=== PATIENT | male | born 1960 | race African-American/Black ===

== ENCOUNTER 2018-02-05 12:17 | Emergency (ER) | payer MEDICAID ==
[~2018-02-05] VITALS: Ht 177.8 cm; Wt 78.0 kg
[~2018-02-05 12:17] MED LIST: INDO25CA18 PO
[2018-02-05 12:49] VITALS: BP 200/128
== END 2018-02-05 15:00 | disposition left against medical advice (07) ==
LOC: ER 14:04
DX: M79.642 Pain in left hand (principal); M79.89 Other specified soft tissue disorders; Z53.21 Procedure and treatment not carried out due to patient leaving prior to being seen by health care provider

== ENCOUNTER 2018-04-11 08:59 | Emergency (ER) | payer MEDICAID ==
[~2018-04-11] VITALS: Ht 177.8 cm; Wt 77.0 kg
[2018-04-11] MEDS ORDERED: ASPIRIN 81MG TABLET PO ONE (09:30)
[2018-04-11] MEDS ORDERED: MECLIZINE 12.5MG TABLET PO ONE (09:30)
[2018-04-11 10:02] LABS: EOSINOPHILS % 2.4 % (0.0-5.0); HEMATOCRIT. 39.2 % (42.0-52.0); LYMPHOCYTES % 38.4 % (20.0-50.0); MEAN CORPUSCULAR HEMOGLOBIN 31.2 pg (28.0-32.0); MEAN CORPUSCULAR VOLUME 93.9 fL (80.0-94.0); MEAN PLATELET VOLUME 7.4 fl (7.4-10.4); MONOCYTES % 4.1 % (2.0-8.0); NEUTROPHILS % 54.1 % (40.0-76.0); PLATELET 327 x1000/uL (130-400); RED BLOOD CELL COUNT 4.17 mill/uL (4.7-6.1); RED CELL DISTRIBUTION WIDTH 14.3 % (11.6-14.6)
[2018-04-11 10:08] LABS: PROTHROMBIN TIME 9.9 sec (9.1-11.1)
[2018-04-11 10:12] LABS: CHLORIDE 106 mEq/L (98-107)
[2018-04-11 11:13] VITALS: BP 143/84
== END 2018-04-11 11:20 | disposition home or self-care (01) ==
LOC: ER 08:59
DX: H61.23 Impacted cerumen, bilateral (principal); R42 Dizziness and giddiness; R11.0 Nausea; J45.909 Unspecified asthma, uncomplicated; F12.10 Cannabis abuse, uncomplicated; Z98.890 Other specified postprocedural states; Z79.899 Other long term (current) drug therapy
CPT/HCPCS: 36415; 71045; 83880; 84484; 93005; 99284; 99406; J8597

== ENCOUNTER 2018-12-08 06:01 | Inpatient (IN) | payer MEDICAID ==
[~2018-12-08] VITALS: Ht 180.3 cm; Wt 74.4 kg
[~2018-12-08 06:01] MED LIST changes: +INDO-13 PO; -INDO25CA18 PO
[2018-12-08] MEDS ORDERED: SODIUM CHLORIDE 0.9% 1,000 ML IV ONE (06:39)
[2018-12-08] MEDS ORDERED: METHYLPREDNISOLONE SOD SUCC 125 MG/2 ML VIAL IV ONE (06:45)
[2018-12-08 07:08] LABS: BASOPHILS % 0.5 % (0.0-2.0); EOSINOPHILS % 2.1 % (0.0-5.0); HEMATOCRIT. 46.5 % (42.0-52.0); HEMOGLOBIN. 16.2 g/dL (14.0-18.0); LYMPHOCYTES % 31.5 % (20.0-50.0); MEAN CORPUSCULAR HEMOGLOBIN 32.7 pg (28.0-32.0); MEAN CORPUSCULAR VOLUME 93.7 fL (80.0-94.0); MEAN PLATELET VOLUME 7.5 fl (7.4-10.4); MONOCYTES % 6.6 % (2.0-8.0); NEUTROPHILS % 59.3 % (40.0-76.0); PLATELET 317 x1000/uL (130-400); RED BLOOD CELL COUNT 4.96 mill/uL (4.7-6.1); RED CELL DISTRIBUTION WIDTH 13.9 % (11.6-14.6)
[2018-12-08 07:12] LABS: CHLORIDE 107 mEq/L (98-107); PROTHROMBIN TIME 10.1 sec (9.6-11.0)
[2018-12-08] MEDS ORDERED: AMLODIPINE 5MG TABLET PO ONE (07:15)
[2018-12-08] MEDS ORDERED: HYDRALAZINE HCL 100MG TABLET PO ONE (08:30)
[2018-12-08] MEDS ORDERED: IOHEXOL-300 100 ML BOTTLE ONE (09:52)
[2018-12-08 10:06] LABS: CLARITY URINE CLEAR (CLEAR); COLOR URINE YELLOW (YELLOW); KETONES URINE TRACE (NEGATIVE); LEUKOCYTE ESTERASE URINE NEGATIVE (NEGATIVE); NITRITE URINE NEGATIVE (NEGATIVE); OCCULT BLOOD URINE 1+ (NEGATIVE); PH URINE 6.5 (4.5-8.0); PROTEIN URINE NEGATIVE (NEGATIVE); SPECIFIC GRAVITY URINE 1.011 (1.005-1.030)
[2018-12-08] MEDS ORDERED: DIPHENHYDRAMINE 50MG/ML VIAL IV ONE (12:00)
[2018-12-08] MEDS ORDERED: ONDANSETRON HCL 4MG/2ML INJ IV PRN (14:15)
[2018-12-08] MEDS ORDERED: ACETAMINOPHEN 325MG TABLET PO PRN (14:15)
[2018-12-08] MEDS ORDERED: DIPHENHYDRAMINE 50MG/ML VIAL IV PRN (14:15)
[2018-12-08] MEDS ORDERED: LABETALOL 5MG/ML SYR 20 MG/4 ML SYRINGE IV NR (14:32)
[2018-12-08 15:28] VITALS: BP 184/107
[2018-12-08 15:41] VITALS: BP 184/107
[2018-12-08] MEDS: CLONIDINE 0.1MG TABLET PO PRN (15:49)
[2018-12-08] MEDS: METHYLPREDNISOLONE SOD SUCC 40 MG/ML VIAL IV SCH (15:49)
[2018-12-08 16:29] LABS: *AMPHETAMINES SCREEN URINE NEGATIVE (NEGATIVE); *BARBITURATES SCREEN URINE NEGATIVE (NEGATIVE); *BENZODIAZEPINES SCREEN URINE NEGATIVE (NEGATIVE); *COCAINE SCREEN URINE PRESUMTIVE POSITIVE (NEGATIVE)
[2018-12-08 16:30] LABS: CANNABINOID URINE SCREEN PRESUMTIVE POSITIVE (NEGATIVE); METHADONE URINE SCREEN NEGATIVE (NEGATIVE); OPIATES URINE SCREEN NEGATIVE (NEGATIVE); PHENCYCLIDINE URINE SCREEN NEGATIVE (NEGATIVE)
[2018-12-08 17:30] VITALS: BP 164/81
[2018-12-08] MEDS ORDERED: IPRATROPIUM/ALBUTEROL 0.5-3(2.5)MG/3ML NEB HHN PRN (18:00)
[2018-12-08] MEDS ORDERED: GUAIFENESIN-DM 200MG-20MG/10ML UDC PO PRN (18:00)
[2018-12-08 20:00] VITALS: BP_SYST 120; BP_SYST 182; BP_DIAS 115; BP_DIAS 62
[2018-12-08] MEDS: METOPROLOL TARTRATE 50MG TABLET PO SCH (21:13)
[2018-12-08] MEDS: HYDRALAZINE HCL 100MG TABLET PO SCH (21:14)
[2018-12-08] MEDS: AMLODIPINE 5MG TABLET PO SCH (21:14)
[2018-12-08] MEDS: GUAIFENESIN 600MG ER TABLET PO SCH (21:14)
[2018-12-08] MEDS: FAMOTIDINE 20MG/2ML VIAL IV SCH (21:52)
[2018-12-09] VITALS: BP 149/98
[2018-12-09] MEDS: METHYLPREDNISOLONE SOD SUCC 40 MG/ML VIAL IV SCH ×2 (00:34→08:56)
[2018-12-09 04:58] VITALS: BP 160/94
[2018-12-09] MEDS: HYDRALAZINE HCL 100MG TABLET PO SCH ×2 (05:07→14:12)
[2018-12-09 06:29] LABS: BASOPHILS % 0.1 % (0.0-2.0); HEMATOCRIT. 41.5 % (42.0-52.0); HEMOGLOBIN. 14.3 g/dL (14.0-18.0); LYMPHOCYTES % 7.5 % (20.0-50.0); MEAN CORPUSCULAR HEMOGLOBIN 32.1 pg (28.0-32.0); MEAN CORPUSCULAR VOLUME 93.4 fL (80.0-94.0); MEAN PLATELET VOLUME 7.6 fl (7.4-10.4); MONOCYTES % 4.2 % (2.0-8.0); NEUTROPHILS % 88.2 % (40.0-76.0); PLATELET 317 x1000/uL (130-400); RED BLOOD CELL COUNT 4.44 mill/uL (4.7-6.1); RED CELL DISTRIBUTION WIDTH 14.4 % (11.6-14.6)
[2018-12-09 06:57] LABS: CHLORIDE 110 mEq/L (98-107)
[2018-12-09 08:00] VITALS: BP 154/95
[2018-12-09] MEDS: AMLODIPINE 5MG TABLET PO SCH (08:55)
[2018-12-09] MEDS: FAMOTIDINE 20MG/2ML VIAL IV SCH (08:56)
[2018-12-09] MEDS: GUAIFENESIN 600MG ER TABLET PO SCH (08:56)
[2018-12-09] MEDS: METOPROLOL TARTRATE 50MG TABLET PO SCH (08:56)
[2018-12-09 12:00] VITALS: BP 174/104
[2018-12-09] MEDS ORDERED: DIPHENHYDRAMINE 50MG/ML VIAL IV SCH (12:00)
[2018-12-09 15:19] VITALS: BP 166/96
[2018-12-09] MEDS: CLONIDINE 0.1MG TABLET PO PRN (15:29)
[2018-12-09] MEDS ORDERED: METOPROLOL TARTRATE 100MG TABLET PO SCH (21:00)
== END 2018-12-09 16:00 | disposition home or self-care (01) | DRG 133 ==
LOC: ER 06:01 → 6WST 11:56 → ENRESERV 14:33
PROVIDERS: ADMIT Internal Medicine; ATTEND Internal Medicine
PROC: 30233K1 Transfusion of Nonautologous Frozen Plasma into Peripheral Vein, Percutaneous Approach (ICD-10-PCS; principal; 2018-12-08)
DX: J96.00 Acute respiratory failure, unspecified whether with hypoxia or hypercapnia (principal); J84.9 Interstitial pulmonary disease, unspecified; T78.2XXA Anaphylactic shock, unspecified, initial encounter; J45.901 Unspecified asthma with (acute) exacerbation; T78.3XXA Angioneurotic edema, initial encounter; I16.0 Hypertensive urgency; I10 Essential (primary) hypertension; M06.9 Rheumatoid arthritis, unspecified; F12.10 Cannabis abuse, uncomplicated; F14.10 Cocaine abuse, uncomplicated; M10.9 Gout, unspecified; Z77.22 Contact with and (suspected) exposure to environmental tobacco smoke (acute) (chronic); Z71.51 Drug abuse counseling and surveillance of drug abuser
CPT/HCPCS: 36415; 70491; 71045; 80048; 80305; 81003; 86850; 86900; 86927; 93005; 93306; 96361; 96374; 96375; 99285; J1200; J2920; J2930; J3490; J7030; P9017; Q9967

== ENCOUNTER 2019-05-21 23:08 | Emergency (ER) | payer MEDICAID ==
[~2019-05-21] VITALS: Ht 177.8 cm; Wt 77.9 kg
[2019-05-22 01:08] VITALS: BP 148/99
== END 2019-05-22 01:20 | disposition home or self-care (01) ==
LOC: ER 23:08
DX: J06.9 Acute upper respiratory infection, unspecified (principal); I10 Essential (primary) hypertension
CPT/HCPCS: 99283

== ENCOUNTER 2019-11-22 05:23 | Inpatient (IN) | payer MEDICAID ==
[~2019-11-22] VITALS: Ht 172.7 cm; Wt 68.9 kg
[2019-11-22] MEDS ORDERED: ASPIRIN 325MG EC TABLET PO ONE (06:30)
[2019-11-22 07:25] LABS: CHLORIDE 104 mEq/L (98-107)
[2019-11-22 07:31] LABS: BASOPHILS % 0.3 % (0.0-2.0); EOSINOPHILS % 3.4 % (0.0-5.0); HEMATOCRIT. 38.9 % (42.0-52.0); HEMOGLOBIN. 13.3 g/dL (14.0-18.0); LYMPHOCYTES % 14.1 % (20.0-50.0); MEAN CORPUSCULAR VOLUME 93.5 fL (80.0-94.0); MEAN PLATELET VOLUME 7.2 fl (7.4-10.4); MONOCYTES % 7.5 % (2.0-8.0); NEUTROPHILS % 74.7 % (40.0-76.0); PLATELET 287 x1000/uL (130-400); RED BLOOD CELL COUNT 4.16 mill/uL (4.7-6.1); RED CELL DISTRIBUTION WIDTH 14.3 % (11.6-14.6)
[2019-11-22] MEDS ORDERED: ONDANSETRON HCL 4MG/2ML INJ IV STA (09:00)
[2019-11-22] MEDS ORDERED: MORPHINE SULFATE 4 MG/ML CPJ (NOT FOR IM USE) IV STA (09:00)
[2019-11-22] MEDS ORDERED: LORAZEPAM 2MG/ML CPJ IV ONE (09:30)
[2019-11-22] MEDS ORDERED: IOHEXOL-350 100 ML BOTTLE ONE (12:42)
[2019-11-22] MEDS ORDERED: DIPHENHYDRAMINE 50MG/ML VIAL IV PRN (14:15)
[2019-11-22] MEDS ORDERED: IPRATROPIUM/ALBUTEROL 0.5-3(2.5)MG/3ML NEB HHN PRN (14:15)
[2019-11-22] MEDS ORDERED: CLONIDINE 0.1MG TABLET PO PRN (14:15)
[2019-11-22] MEDS ORDERED: ONDANSETRON HCL 4MG/2ML INJ IV PRN (14:15)
[2019-11-22] MEDS ORDERED: ACETAMINOPHEN 325MG TABLET PO PRN (14:15)
[2019-11-22] MEDS ORDERED: MORPHINE SULFATE 2 MG/ML CPJ (NOT FOR IM USE) IV PRN (14:15)
[2019-11-22 14:33] LABS: PHOSPHORUS 2.8 mg/dL (2.5-4.9)
[2019-11-22] MEDS: ENOXAPARIN 40MG/0.4ML SYR SUBCUT SCH (15:00)
[2019-11-22 16:00] VITALS: BP 140/85
[2019-11-22] MEDS ORDERED: PNEUMOCOCCAL 23-VAL P-SAC VAC 0.5 ML IM ONE (17:30)
[2019-11-22 18:04] VITALS: BP 140/85
[2019-11-22 20:00] VITALS: BP 140/88
[2019-11-23] VITALS: BP 116/73
[2019-11-23 00:22] LABS: CREATINE KINASE 191 IU/L (39-308)
[2019-11-23 00:23] LABS: CREATINE KINASE MB FRACTION 1.3 ng/mL (0.5-3.6)
[2019-11-23 04:00] VITALS: BP 138/84
[2019-11-23 07:07] LABS: BASOPHILS % 0.3 % (0.0-2.0); EOSINOPHILS % 2.1 % (0.0-5.0); HEMATOCRIT. 38.8 % (42.0-52.0); HEMOGLOBIN. 13.3 g/dL (14.0-18.0); LYMPHOCYTES % 18.2 % (20.0-50.0); MEAN CORPUSCULAR HEMOGLOBIN 32.1 pg (28.0-32.0); MEAN CORPUSCULAR VOLUME 93.6 fL (80.0-94.0); MEAN PLATELET VOLUME 7.2 fl (7.4-10.4); MONOCYTES % 10.7 % (2.0-8.0); NEUTROPHILS % 68.7 % (40.0-76.0); PLATELET 314 x1000/uL (130-400); RED BLOOD CELL COUNT 4.14 mill/uL (4.7-6.1); RED CELL DISTRIBUTION WIDTH 14.2 % (11.6-14.6)
[2019-11-23 07:29] LABS: CHLORIDE 103 mEq/L (98-107)
[2019-11-23 07:41] LABS: HDL CHOLESTEROL 60 mg/dL (40-59)
[2019-11-23 07:43] LABS: CREATINE KINASE 175 IU/L (39-308); LDL CHOLESTEROL 69 mg/dL (5-100)
[2019-11-23 08:00] VITALS: BP 126/82
[2019-11-23 12:00] VITALS: BP 128/77
[2019-11-23] MEDS: ENOXAPARIN 40MG/0.4ML SYR SUBCUT SCH (14:03)
[2019-11-23] MEDS: ASPIRIN 81MG TABLET PO SCH (14:03)
[2019-11-23] MEDS ORDERED: AMLO10TA80 MT (14:39)
[2019-11-23 16:00] VITALS: BP 115/70
[2019-11-23] MEDS ORDERED: POTASSIUM CHLORIDE 20MEQ TABLET SR PO SCH (17:15)
[2019-11-23 20:00] VITALS: BP 156/80
[2019-11-23] MEDS ORDERED: ATORVASTATIN CALCIUM 20MG TABLET PO SCH (21:00)
[2019-11-24] VITALS: BP 130/77
[2019-11-24 04:00] VITALS: BP 151/80
[2019-11-24 08:00] VITALS: BP 129/82
[2019-11-24] MEDS: ASPIRIN 81MG TABLET PO SCH (09:16)
[2019-11-24] MEDS ORDERED: ATOR20TA PO (11:37)
[2019-11-24] MEDS ORDERED: ASPI-1160 PO (11:37)
[2019-11-24 12:00] VITALS: BP 135/87
[2019-11-24 12:23] LABS: EOSINOPHILS % 3.1 % (0.0-5.0); HEMATOCRIT. 38.8 % (42.0-52.0); HEMOGLOBIN. 13.3 g/dL (14.0-18.0); LYMPHOCYTES % 37.2 % (20.0-50.0); MEAN CORPUSCULAR HEMOGLOBIN 32.2 pg (28.0-32.0); MONOCYTES % 7.2 % (2.0-8.0); NEUTROPHILS % 51.5 % (40.0-76.0); PLATELET 351 x1000/uL (130-400); RED BLOOD CELL COUNT 4.13 mill/uL (4.7-6.1)
[2019-11-24 12:27] VITALS: BP 135/87
[2019-11-24 12:30] LABS: CHLORIDE 106 mEq/L (98-107)
== END 2019-11-24 13:05 | disposition home or self-care (01) | DRG 203 ==
LOC: ER 05:23 → 5WST 13:03 → EDBEDREQTM 13:10 → EDBEDREQ 13:10 → ENRESERV 15:19
PROVIDERS: ADMIT Internal Medicine; ATTEND Internal Medicine
DX: M94.0 Chondrocostal junction syndrome [Tietze] (principal); E78.5 Hyperlipidemia, unspecified; F12.90 Cannabis use, unspecified, uncomplicated; I10 Essential (primary) hypertension; J98.11 Atelectasis; R79.89 Other specified abnormal findings of blood chemistry; Z79.899 Other long term (current) drug therapy; E87.1 Hypo-osmolality and hyponatremia
CPT/HCPCS: 36415; 71045; 71275; 80048; 80053; 80061; 82550; 82553; 83735; 83880; 84100; 84443; 84484; 85025; 85379; 90732; 93005; 93306; 93970; 99285; J1650; J2270; J2405; Q9967

== ENCOUNTER 2023-12-17 21:07 | Emergency (ER) | payer MEDICAID ==
[~2023-12-17] VITALS: Ht 177.8 cm; Wt 87.0 kg
[~2023-12-17 21:07] MED LIST changes: +AMLO10TA80 MT; +ASPI-1160 PO; +ATOR20TA PO
[2023-12-17 21:22] VITALS: O2SAT 96
[2023-12-17] MEDS ORDERED: P50 MT (23:21)
[2023-12-17] MEDS ORDERED: DIPH25TA62 MT (23:21)
[2023-12-17 23:30] VITALS: BP 152/81; PULSE 60; RESP 16; TEMP 36.61404; O2SAT 98
[2023-12-17] MEDS: DIPHENHYDRAMINE 25MG CAPSULE PO ONE (23:30)
[2023-12-17] MEDS: METHYLPREDNISOLONE SOD SUCC 125MG/2ML (ACT-O-VIAL) IM STA (23:30)
== END 2023-12-17 23:54 | disposition home or self-care (01) ==
LOC: ER 21:07
DX: T78.49XA Other allergy, initial encounter (principal); I10 Essential (primary) hypertension; F12.10 Cannabis abuse, uncomplicated; Z79.899 Other long term (current) drug therapy; X58.XXXA Exposure to other specified factors, initial encounter
CPT/HCPCS: 99283; 96372; Q0163; J2919

== ENCOUNTER 2024-05-13 13:45 | Emergency (ER) | payer MEDICAID ==
[~2024-05-13] VITALS: Ht 177.8 cm; Wt 85.0 kg
[~2024-05-13 13:45] MED LIST changes: +DIPH25TA62 MT; +P50 MT
[2024-05-13 15:00] VITALS: O2SAT 99
[2024-05-13] MEDS: IBUPROFEN 600MG TABLET PO NR (15:20)
[2024-05-13] MEDS: KETOROLAC 30MG/ML VIAL IM ONE (17:13)
[2024-05-13] MEDS ORDERED: CEFTRIAXONE SODIUM 500MG VIAL IM ONE (19:45)
[2024-05-13] MEDS ORDERED: IBUP-2029 MT (19:47)
[2024-05-13] MEDS ORDERED: LEVO-65 MT (19:47)
[2024-05-13 20:12] VITALS: BP 158/67; PULSE 81; RESP 19; TEMP 36.72516; O2SAT 100
[2024-05-13] MEDS: LIDOCAINE HCL 1% 20ML VIAL INFIL NR (20:20)
[2024-05-13] MEDS: CEFTRIAXONE SODIUM 500MG VIAL IM NR (20:20)
== END 2024-05-13 20:23 | disposition home or self-care (01) ==
LOC: ER 13:45
DX: N45.3 Epididymo-orchitis (principal); I10 Essential (primary) hypertension; F12.90 Cannabis use, unspecified, uncomplicated; F10.90 Alcohol use, unspecified, uncomplicated; Z79.899 Other long term (current) drug therapy; Z79.82 Long term (current) use of aspirin; Y90.9 Presence of alcohol in blood, level not specified
CPT/HCPCS: 99285; 93976; 76870; 96372; J1885; J0696; J3490